=== PATIENT | female | born 1980 | race Two or more races ===

== ENCOUNTER 2024-10-17 12:05 | Emergency (ER) | payer MEDICAID, OTHER ==
[~2024-10-17] VITALS: Ht 177.8 cm; Wt 68.0 kg
[2024-10-17] MEDS ORDERED: DIPH25CA83 PO (12:46)
[2024-10-17] MEDS ORDERED: LORA10TA7 PO (12:46)
[2024-10-17] MEDS ORDERED: PRED50TA PO (12:46)
[2024-10-17 12:54] VITALS: BP 123/80; TEMP 97.5; O2SAT 98
== END 2024-10-17 12:55 | disposition home or self-care (01) ==
LOC: ER 12:40
DX: L50.9 Urticaria, unspecified (principal); Z79.52 Long term (current) use of systemic steroids

== ENCOUNTER 2025-06-25 11:07 | Emergency (ER) | payer OTHER ==
[~2025-06-25] VITALS: Ht 170.2 cm; Wt 68.0 kg
[~2025-06-25 11:07] MED LIST: DIPH25CA83 PO; LORA10TA7 PO; PRED50TA PO
[2025-06-25 11:40] VITALS: BP 110/69; TEMP 97.9
[2025-06-25] MEDS ORDERED: TOBR5DRO2 LEFTEYE (12:06)
[2025-06-25 12:31] VITALS: O2SAT 100
== END 2025-06-25 12:32 | disposition home or self-care (01) ==
LOC: ER 11:18
DX: H10.502 Unspecified blepharoconjunctivitis, left eye (principal); Z79.52 Long term (current) use of systemic steroids; Z79.899 Other long term (current) drug therapy